=== PATIENT | male | born 1940 | race African-American/Black ===

== ENCOUNTER 2020-07-17 20:28 | Inpatient (IN) ==
[2020-07-17] MEDS ORDERED: ACETAMINOPHEN 500 MG TABLET PO STA (20:51)
[2020-07-17] MEDS ORDERED: SODIUM CHLORIDE 0.9% 1,000 ML IV STA ×2 (20:51→21:19)
[2020-07-17 20:58] LABS: Basophils % 0.6 % (0.0-0.8); Eosinophils # 0.1 10*3/uL (0.0-0.87); Eosinophils % 1.3 % (0.00-10.9); Hematocrit 47.9 VOL% (42.0-52.0); Hemoglobin 15.8 GM/DL (14.0-18.0); Immature Granulocytes % 0.4 %; Immature Granulocytes Absolute 0.03 #; Lymphocytes # 2.2 10*3/uL (1.4-4.0); Lymphocytes % 30.2 % (21.2-54.2); Mean Corpuscular Volume 96.4 FL (87-102); Mean Platelet Volume 9.9 FL (9.6-12.0); Monocytes % 4.1 % (1.7-12.7); Neutrophils % 63.4 % (38.7-73.9); Platelet Count 207 T/CUMM (130-400); Red Blood Count 4.97 MC/CUMM (3.8-5.5); Red Cell Distribution Width 12.2 % (9.3-17.3); White Blood Count 7.1 T/CUMM (4-12)
[2020-07-17] MEDS ORDERED: ACETAMINOPHEN 120 MG SUPP RECTAL STA (21:13)
[2020-07-17 21:15] LABS: Alanine Aminotransferase 15 U/L (16-61); Albumin 3.6 G/DL (3.4-5.0); Alkaline Phosphatase 89 U/L (45-117); Aspartate Amino Transferase 20 U/L (0-37); Blood Urea Nitrogen 26 MG/DL (7-18); Calcium 8.8 MG/DL (8.5-10.1); Carbon Dioxide 26 MMOL/L (21-32); Glucose 140 MG/DL (74-106); Osmolality,Calculated 276.1 MOS/KG (273-304); Sodium 135 MMOL/L (136-145); Total Protein 8.2 G/DL (6.4-8.3)
[2020-07-17 21:16] LABS: Bilirubin,Urine Negative (Negative); Blood, Urine Large mg/dL (Negative); Estimated Glom Filtration Rate 0 ML/MIN; Glucose,Urine (UA) Negative (Negative); Ketones,Urine 20 mg/dL (Negative); Nitrite,Urine Negative (Negative); Protein,Urine 30 MG/DL; Urine Appearance Slightly Hazy (Clear); Urine Color Yellow (Yellow); Urine Specific Gravity 1.019 (1.001-1.035)
[2020-07-17] MEDS ORDERED: ACETAMINOPHEN 650 MG SUPP RECTAL STA ×2 (21:16→21:18)
[2020-07-17] MEDS ORDERED: LABETALOL 20 MG/4 ML SYRINGE IV STA (21:22)
[2020-07-17] MEDS ORDERED: PIPERACILLIN/TAZOBACTAM 3,375 MG in SODIUM CHLORIDE 0.9% 100 ML IV STA (21:22)
[2020-07-17] MEDS ORDERED: VANCOMYCIN INJ 1,000 MG in SODIUM CHLORIDE 0.9% 250 ML IV STA (21:46)
[2020-07-17] MEDS ORDERED: niCARdipine INJ 25 MG in SODIUM CHLORIDE 0.9% 240 ML IV PRN (22:03)
[2020-07-17] MEDS ORDERED: niCARdipine 25 MG/10 ML VIAL IV ONE (22:05)
[2020-07-17 22:20] LABS: ABG Base Excess -1.1 MMOL/L (-2.5-2.5); ABG HCO3 23.5 MMOL/L (20-26); ABG Oxygen Saturation 99.3 % (95-100); ABG PCO2 37.3 MM HG (35-48); ABG PH 7.402 (7.35-7.45); ABG TCO2 20.1 MMOL/L (23-27)
[2020-07-18] MEDS ORDERED: LABETALOL 20 MG/4 ML SYRINGE IV PRN (00:33)
[2020-07-18] MEDS ORDERED: ACETAMINOPHEN 325 MG TABLET PO PRN (00:54)
[2020-07-18] MEDS: SODIUM CHLORIDE 0.9% 1,000 ML IV SCH ×3 (01:49→22:30)
[2020-07-18 02:10] LABS: Barbiturates Screen,Urine Negative (Negative); Benzodiazepines Screen,Urine Negative (Negative); Cannabinoid Screen,Urine Negative (Negative); Opiate Screen,Urine Negative (Negative); Phencyclidine Screen,Urine Negative (Negative)
[2020-07-18] MEDS: PIPERACILLIN/TAZOBACTAM 3,375 MG in SODIUM CHLORIDE 0.9% 100 ML IV SCH ×2 (07:45→17:03)
[2020-07-18 07:53] LABS: Calcium 7.8 MG/DL (8.5-10.1); Osmolality,Calculated 280.7 MOS/KG (273-304); Potassium 3.7 MMOL/L (3.5-5.1); Risk Ratio 4.84
[2020-07-18 07:55] LABS: Basophils % 0.2 % (0.0-0.8); Hematocrit 43.9 VOL% (42.0-52.0); Hemoglobin 15.1 GM/DL (14.0-18.0); Immature Granulocytes % 0.4 %; Immature Granulocytes Absolute 0.05 #; Lymphocytes # 1.2 10*3/uL (1.4-4.0); Lymphocytes % 10.4 % (21.2-54.2); Mean Corpuscular HGB Conc 34.4 GM/DL (32-36); Mean Corpuscular Volume 94.2 FL (87-102); Mean Platelet Volume 9.5 FL (9.6-12.0); Monocytes % 5.9 % (1.7-12.7); Neutrophils % 83.1 % (38.7-73.9); Red Blood Count 4.66 MC/CUMM (3.8-5.5); Red Cell Distribution Width 12.2 % (9.3-17.3)
[2020-07-18 07:57] LABS: Platelet Count 137 T/CUMM (130-400)
[2020-07-18 08:22] LABS: Platelet Estimate Adequate
[2020-07-18] MEDS: ASPIRIN 325 MG TABLET PO SCH (09:07)
[2020-07-18] MEDS: ENOXAPARIN 30 MG/0.3 ML SYRINGE SUBCUT SCH (09:08)
[2020-07-18] MEDS: OLANZapine 2.5 MG TABLET PO SCH (21:36)
[2020-07-18] MEDS: VANCOMYCIN INJ 1,250 MG in SODIUM CHLORIDE 0.9% 250 ML IV SCH (21:42)
[2020-07-19] MEDS: PIPERACILLIN/TAZOBACTAM 3,375 MG in SODIUM CHLORIDE 0.9% 100 ML IV SCH ×3 (01:30→16:38)
[2020-07-19 05:38] LABS: Basophils # 0.1 10*3/uL (0.0-0.2); Basophils % 0.5 % (0.0-0.8); Eosinophils % 0.3 % (0.00-10.9); Hematocrit 42.7 VOL% (42.0-52.0); Hemoglobin 14.2 GM/DL (14.0-18.0); Immature Granulocytes % 0.3 %; Immature Granulocytes Absolute 0.03 #; Lymphocytes # 1.9 10*3/uL (1.4-4.0); Lymphocytes % 19.4 % (21.2-54.2); Mean Corpuscular HGB Conc 33.3 GM/DL (32-36); Mean Corpuscular Volume 96.4 FL (87-102); Mean Platelet Volume 10.2 FL (9.6-12.0); Monocytes % 8.7 % (1.7-12.7); Neutrophils % 70.8 % (38.7-73.9); Platelet Count 152 T/CUMM (130-400); Red Blood Count 4.43 MC/CUMM (3.8-5.5); Red Cell Distribution Width 12.3 % (9.3-17.3); White Blood Count 9.6 T/CUMM (4-12)
[2020-07-19 05:56] LABS: Calcium 8.1 MG/DL (8.5-10.1); Osmolality,Calculated 283.3 MOS/KG (273-304); Potassium 3.5 MMOL/L (3.5-5.1)
[2020-07-19] MEDS: ASPIRIN 325 MG TABLET PO SCH (09:33)
[2020-07-19] MEDS: OLANZapine 2.5 MG TABLET PO SCH ×2 (09:33→20:47)
[2020-07-19] MEDS: CLOPIDOGREL 75 MG TABLET PO SCH (09:33)
[2020-07-19] MEDS: ENOXAPARIN 30 MG/0.3 ML SYRINGE SUBCUT SCH (09:33)
[2020-07-19] MEDS ORDERED: hydrALAZINE 20 MG/1 ML VIAL IV PRN (13:00)
[2020-07-19] MEDS: amLODIPine 5 MG TABLET PO SCH (16:38)
[2020-07-19] MEDS: VANCOMYCIN INJ 1,250 MG in SODIUM CHLORIDE 0.9% 250 ML IV SCH (20:48)
[2020-07-20] MEDS: PIPERACILLIN/TAZOBACTAM 3,375 MG in SODIUM CHLORIDE 0.9% 100 ML IV SCH ×3 (00:12→15:25)
[2020-07-20] MEDS: SODIUM CHLORIDE 0.9% 1,000 ML IV SCH ×2 (04:15→21:54)
[2020-07-20] MEDS: ENOXAPARIN 30 MG/0.3 ML SYRINGE SUBCUT SCH (09:21)
[2020-07-20] MEDS: CLOPIDOGREL 75 MG TABLET PO SCH (09:22)
[2020-07-20] MEDS: amLODIPine 5 MG TABLET PO SCH (09:22)
[2020-07-20] MEDS: ASPIRIN 325 MG TABLET PO SCH (09:22)
[2020-07-20] MEDS: OLANZapine 2.5 MG TABLET PO SCH ×2 (09:22→21:49)
[2020-07-20] MEDS: VANCOMYCIN INJ 1,250 MG in SODIUM CHLORIDE 0.9% 250 ML IV SCH (21:59)
[2020-07-21] MEDS: SODIUM CHLORIDE 0.9% 1,000 ML IV SCH ×2 (00:23→13:52)
[2020-07-21] MEDS: PIPERACILLIN/TAZOBACTAM 3,375 MG in SODIUM CHLORIDE 0.9% 100 ML IV SCH ×2 (00:25→08:47)
[2020-07-21] MEDS: amLODIPine 5 MG TABLET PO SCH (08:46)
[2020-07-21] MEDS: ENOXAPARIN 30 MG/0.3 ML SYRINGE SUBCUT SCH (08:46)
[2020-07-21] MEDS: OLANZapine 2.5 MG TABLET PO SCH (08:46)
[2020-07-21] MEDS: CLOPIDOGREL 75 MG TABLET PO SCH (08:47)
[2020-07-21] MEDS: ASPIRIN 325 MG TABLET PO SCH (08:47)
[2020-07-21 13:55] VITALS: BP 168/73
== END 2020-07-21 14:24 | disposition home health service (06) | DRG 65 ==
LOC: N.ED 20:28 → N.EDINP 20:28 → SUATTDRO 07-18 00:33 → N.EDINP 07-18 13:14 → N.5E 07-18 13:40
PROVIDERS: ADMIT Family Medicine; ATTEND Family Medicine